=== PATIENT | female | born 1935 ===

== ENCOUNTER → 2024-04-29 09:19 | Outpatient (CLI) | payer MEDICARE, MEDICAID, SELFPAY ==
[2024-04-29 11:30] LABS: Hematocrit 48.5 % (36-46); Hemoglobin 16.4 g/dL (12.0-16.0); Mean Corpuscular HGB Conc 33.9 % (30-36); Mean Corpuscular Hemoglobin 29.6 PG (26-34); Mean Corpuscular Volume 87.3 fL (80-100); Platelet Count 260 X10^3/uL (150-400); Red Blood Cell Count 5.55 X10^6/uL (4.0-5.2); Red Cell Distribution Width 14.8 % (11.6-14.8); White Blood Cell Count 8.7 X10^3/uL (4.5-11.0)
[2024-04-29 11:36] LABS: Hemoglobin A1C% w Est Avg Glu 6.4 % (4.0-6.0)
[2024-04-29 11:45] LABS: BUN Creatinine Ratio 28.1 (6-22); Blood Urea Nitrogen 32 mg/dL (7-17); Carbon Dioxide 22 mmol/L (22-32); Chloride 101 mmol/L (98-107); Cholesterol 217 mg/dL (140-199); Estimated Glomerular Filt Rate 47 mL/min (>60); Glucose 141 mg/dL (80-110); HDL Cholesterol 32 mg/dL (40-60); HEMOLYSIS 23 (0-50); LDL Cholesterol Calculated 138 mg/dL (<100); Potassium 4.3 mmol/L (3.4-5.1); Sodium 136 mmol/L (137-145); Triglycerides 237 mg/dL (35-150)
== END ==
LOC: LAB 09:22
PROVIDERS: PCP Nurse Practitioner Family; Referring Provider Nurse Practitioner Family; Visit Provider Nurse Practitioner Family
DX: E11.9 Type 2 diabetes mellitus without complications (principal); I50.9 Heart failure, unspecified
CPT/HCPCS: 36415; 80048; 80061; 83036; 85027

== ENCOUNTER → 2024-05-28 10:55 | Outpatient (CLI) | payer MEDICARE, MEDICAID, SELFPAY ==
--- NOTE | 2024-05-28 11:07 | DIAB.MNT ---
Initial Diabetes Medical Nutrition Therapy Assessment Name: Rona Cotter Date: 05/28/24 Time: [id number] Dx: Type II Diabetes Rona presents with caregiver today for initial Dm visit. States she has had Dm for a long time, 20-40 years. Wanting to know what is new in DM. Follows Mediterranean diet with lower carb per report. Wears Dexcom G7. Noticed stress can increase BG. Less stress lately. Has not needed insulin, though in today's visit had a BG of 255mg/dl after hot chocolate on the way here. States she will take Tresiba if above 200mg/dl, but does not have insulin needle tips with her today. Last PCP per report rec'd not to take Tresiba unless BG is over 200mg/dl. Try to keep BG 120-200. Labs also indicate some renal insufficiencies with GFR at 47 and Cr 1.14. States she sometimes will forget to drink much water when at the computer most of the day. Diet Recall: 9a: cheerios with fruit and milk OR egg with mushrooms and 1 polish toast snack: nothing or fruit 1p: half can of soup + fruit OR PB sandwich 6-7p: half can of soup +/- extra chicken OR pork chop with veggies and 1/2c rice OR pasta with chx x 1c Water 26oz+ flavored water 20oz diet pepsi 24oz Anthropometrics: Ht: 68 Wt: 154# 05/07/24 Weight history: States she has lost 10# over about 2 months intentionally. Has had recent fall per report. States she checks her wt daily. Some concern from this RD about wt loss desire, usual associated muscle loss, and falls. Physical Activity: Just started PT Self-Monitoring Blood Glucose: Per CGM, seems to have elevations most frequently at noon, after breakfast. Most days 1-2 elevations in the 200s. TIR Today: 4% very high 14% high 81% in range 1% low <1% very low avmg/dl 43mg/dl std dev GMI: 6.8% Diabetes Medications: 10mg Jardiance Tresiba-- not taking currently Pertinent Labs: HgA1c: 6.4% 04/2024 Cr: 1.14H GFR: 47 L Past Medical History: (Last Updated 05/12/24 @ 10:28 by Poonam Ferrell [facility]) Atrial fibrillation Balance problem Congestive heart failure Diabetes mellitus Fibromyalgia Hard of hearing Hyperlipidemia Hypertension Intermittent asthma Migraines Nutrition Rx: REE: 1200 Carbohydrates: Daily: 130g Meal:30g Snack:15-30g Protein: Daily: 60-70g Nutrition Diagnosis: - Excessive CHO intake r/t breakfast and drink choices aeb diet recall and CGM reports - Predicted inadequate fluid intake r/t some days forgetting water aeb pt report Intervention: This participant was very receptive. Provided appropriate educational handouts. Discussed the following topics: Completed intake assessment. Discussed barriers to care. CGM reports and trends Plate Method, impact of macronutrients on blood sugar, meal timing, carbohydrate counting, pairing macronutrients and spreading out carbohydrates for better blood glucose management Plant based proteins for kidney health Protein recommendations balancing DM and kidney health and strength to reduce falls Recommended servings for carbohydrates at meals and snacks Brainstormed appropriate breakfast ideas Role of physical activity and following provider guidelines for safety Importance of hydration especially on Jaridiance Created SMART goals for patient self-care and success. Goals: Keep insulin needles in purse Check Finnish miss hot chocolate at home if sf Add a small portion protein at breakfast Be mindful of water intake Follow-up: CHRISTIANA ASHRAF follow-up in 3-4 weeks Fabiola Hoyt RDN, ANDRIY Certified Diabetes Care and [employer] Super[employer] P: [phone] Thank you for this referral
== END ==
PROVIDERS: PCP Nurse Practitioner Family; Referring Provider Nurse Practitioner Family
DX: E11.9 Type 2 diabetes mellitus without complications (principal); Z79.84 Long term (current) use of oral hypoglycemic drugs; Z71.3 Dietary counseling and surveillance
CPT/HCPCS: 97802

== ENCOUNTER → 2024-06-19 12:22 | Outpatient (CLI) | payer MEDICARE, MEDICAID, SELFPAY ==
[2024-06-19 15:00] LABS: Add Manual Diff / Slide Review NO; Basophils Absolute Auto 100 /uL (0-100); Basophils Percent Auto 0.8 % (0-2); Eosinophils Absolute Auto 100 /uL (0-450); Eosinophils Percent Auto 1.2 % (2-4); Hematocrit 47.1 % (36-46); Hemoglobin 16.1 g/dL (12.0-16.0); Lymphocytes Absolute Auto 3100 /uL (1100-4500); Lymphocytes Percent Auto 31.6 % (25-40); Mean Corpuscular HGB Conc 34.2 % (30-36); Mean Corpuscular Hemoglobin 29.9 PG (26-34); Mean Corpuscular Volume 87.4 fL (80-100); Monocytes Absolute Auto 700 /uL (0-900); Monocytes Percent Auto 7.3 % (3-14); Neutrophils Absolute Auto 5800 /uL (1500-7000); Neutrophils Percent Auto 59.1 % (50-75); Platelet Count 275 X10^3/uL (150-400); Red Blood Cell Count 5.38 X10^6/uL (4.0-5.2); Red Cell Distribution Width 14.8 % (11.6-14.8); White Blood Cell Count 9.8 X10^3/uL (4.5-11.0)
[2024-06-19 15:20] LABS: BUN Creatinine Ratio 28.6 (6-22); Blood Urea Nitrogen 30 mg/dL (7-17); Calcium 9.7 mg/dL (8.4-10.2); Carbon Dioxide 22 mmol/L (22-32); Chloride 101 mmol/L (98-107); Estimated Glomerular Filt Rate 52 mL/min (>60); Glucose 124 mg/dL (80-110); HEMOLYSIS < 15 (0-50); Potassium 3.3 mmol/L (3.4-5.1); Sodium 135 mmol/L (137-145)
[2024-06-19 15:31] LABS: Hemoglobin A1C% w Est Avg Glu 6.6 % (4.0-6.0)
== END ==
PROVIDERS: PCP Nurse Practitioner Family; Referring Provider Nurse Practitioner Family; Visit Provider Nurse Practitioner Family
DX: E11.9 Type 2 diabetes mellitus without complications (principal); I48.91 Unspecified atrial fibrillation; I50.9 Heart failure, unspecified; I10 Essential (primary) hypertension
CPT/HCPCS: 80048; 83036; 85025

== ENCOUNTER 2024-08-13 15:31 | Emergency (ER) | payer MEDICARE, MEDICAID, SELFPAY ==
[2024-08-13] VITALS (8 sets, daily range): BP systolic 123–154; BP diastolic 61–85; PULSE 71–81; RESP 14–19; TEMP 36.5–36.8; O2SAT 95–99; BMI 25.3
--- NOTE | 2024-08-13 15:37 | EKG_ITS ---
[address] [address] Test Date: 2024-08-13 Pat Name: Rona Cotter Department: Room: Gender: Female Tier Over: MARTI : 1935 Requested By: Order Number: [id number] Reading MD: Sukhi Alba Measurements Intervals [place] Rate: 78 P: 83 [place]: 166 QRS: 61 QRSD: 94 T: 72 QT: 390 QTc: 444 Interpretive Statements Sinus rhythm with premature atrial complexes Electronically Signed On 08-14-2024 7:22:41 PST by Sukhi Alba
--- NOTE | 2024-08-13 15:39 | DI.RAD.S_ITS ---
PROCEDURE: XR CHEST 1V INDICATIONS: chest pain TECHNIQUE: One view of the chest was acquired. COMPARISON: None. FINDINGS: Surgical changes and devices: None. Lungs and pleura: Lungs are clear. No pleural effusions or pneumothorax. Mediastinum: Mediastinal contours appear normal. Heart size is normal. Bones and chest wall: No suspicious bony lesions. Overlying soft tissues appear unremarkable. S shaped scoliosis. IMPRESSION: No acute cardiopulmonary abnormality is seen. Dictated by: Sai Hummel M.D. on 08/13/2024 at 16:07 Approved by: Sai Hummel M.D. on 08/13/2024 at 16:08
[2024-08-13 15:58] LABS: Add Manual Diff / Slide Review NO; Basophils Absolute Auto 100 /uL (0-100); Basophils Percent Auto 1.5 % (0-2); Eosinophils Absolute Auto 800 /uL (0-450); Eosinophils Percent Auto 8.2 % (2-4); Hematocrit 47.6 % (36-46); Hemoglobin 16.2 g/dL (12.0-16.0); Lymphocytes Absolute Auto 3800 /uL (1100-4500); Lymphocytes Percent Auto 41.1 % (25-40); Mean Corpuscular HGB Conc 34.1 % (30-36); Mean Corpuscular Hemoglobin 30.2 PG (26-34); Mean Corpuscular Volume 88.8 fL (80-100); Monocytes Absolute Auto 900 /uL (0-900); Monocytes Percent Auto 9.6 % (3-14); Neutrophils Absolute Auto 3700 /uL (1500-7000); Neutrophils Percent Auto 39.6 % (50-75); Platelet Count 308 X10^3/uL (150-400); Red Blood Cell Count 5.36 X10^6/uL (4.0-5.2); Red Cell Distribution Width 14.4 % (11.6-14.8); White Blood Cell Count 9.4 X10^3/uL (4.5-11.0)
[2024-08-13 15:59] LABS: INR 1.1 (0.9-1.3); Prothrombin Time 12.5 SECONDS (9.4-12.5)
[2024-08-13 16:02] LABS: PTT Partial Thromboplastin Tim 41 SECONDS (25.1-36.5)
[2024-08-13 16:04] LABS: Alanine Aminotransferase 28 IU/L (<35); Albumin 4.9 g/dL (3.5-5.0); Albumin Globulin Ratio 1.4 (1.0-2.8); Alkaline Phosphatase 89 U/L (38-126); Aspartate Aminotransferase 44 IU/L (14-36); BUN Creatinine Ratio 38.8 (6-22); Bilirubin Total 0.6 mg/dL (0.2-1.3); Blood Urea Nitrogen 33 mg/dL (7-17); Calcium 9.3 mg/dL (8.4-10.2); Carbon Dioxide 24 mmol/L (22-32); Chloride 100 mmol/L (98-107); Creatine Kinase 92 U/L (30-135); Estimated Glomerular Filt Rate > 60 mL/min (>60); Globulin 3.4 g/dL (1.7-4.1); Glucose 214 mg/dL (80-110); Lipase 118 U/L (23-300); Potassium 3.6 mmol/L (3.4-5.1); Sodium 135 mmol/L (137-145); Total Protein 8.3 g/dL (6.3-8.2)
[2024-08-13 16:07] LABS: HEMOLYSIS 56 (0-50)
[2024-08-13 16:15] LABS: NT-proBNP (BNP-Adult 18+) 62 pg/mL (<450); Troponin I < 0.012 ng/mL (0.01-0.034)
--- NOTE | 2024-08-13 17:21 | ED_ITS ---
HPI - Chest Pain General Chief Complaint: Chest Pain Stated Complaint: chest pain Time Seen by Provider: 08/13/24 15:35 Source: patient Mode of arrival: Wheelchair Limitations: no limitations History of Present Illness HPI narrative: 89-year-old woman with a history of atrial fibrillation, anticoagulated on apixaban, diabetes, hypertension, asthma, migraines, congestive heart failure presents after a fleeting episode of severe sharp left-sided chest pain that occurred 3 days ago while at rest. She has had occasional upper left chest pain and occasional discomfort radiating down her left arm. In the past she is always attributed this to her ?congestive heart failure pain?. She does have some cervical spine pain with radicular symptoms. She mentioned her symptoms 72 hours ago to a friend who was concerned and brought her to the ER for additional evaluation. She is currently pain-free, not experiencing palpitations no change to lower extremity edema, no orthopnea no exertional dyspnea and no recent fevers or chills to suggest an upper respiratory infection Related Data Previous Rx's Medication Instructions Recorded insulin degludec 200 unit/mL (3 44 unit (0.22 mL) SUBCUT DAILY #9 04/02/24 mL) subcutaneous pen (Tresiba mL FlexTouch U-200 insulin) apixaban 5 mg tablet (Eliquis) 5 mg PO ONCE #90 tabs 04/08/24 empagliflozin 10 mg tablet 10 mg PO DAILY #90 tabs 04/08/24 (Jardiance) metoprolol succinate 25 mg 25 mg PO BID #90 tabs 04/08/24 tablet,extended release 24 hr albuterol sulfate 90 mcg/actuation 1 inh inhalation Q4-6H PRN 05/07/24 aerosol inhaler shortness of breath or wheezing #8.5 grams Disabled Parking Permit #1 ea 05/13/24 bumetanide 2 mg tablet 2 mg PO DAILY #90 tabs 07/30/24 potassium chloride 20 mEq 40 meq (2 x 20 mEq) PO DAILY #180 07/30/24 tablet,extended tabs release(part/cryst) (Klor-Con M) blood-glucose sensor (Dexcom G7 #3 ea 08/05/24 Sensor device) Allergies Allergy/AdvReac Type Severity Reaction Status Date / Time No Known Drug Allergies Allergy Verified 08/13/24 15:40 Review of Systems Review of Systems Narrative: Pertinent positive and negative findings as per HPI Patient History Medical History Hyperlipidemia Balance problem Hard of hearing Intermittent asthma Migraines Fibromyalgia Atrial fibrillation Diabetes mellitus Congestive heart failure Hypertension Social History Smoking Status: Never smoker Smoking Status: Never smoker alcohol intake frequency: holidays/special occasions only Substance Use Type: does not use Exam Initial Vital Signs Initial Vital Signs: Vital Signs Temperature 97.7 F 08/13/24 15:32 Pulse Rate 76 08/13/24 15:32 Respiratory Rate 14 08/13/24 15:32 Blood Pressure 147/85 H 08/13/24 15:32 Pulse Oximetry 99 08/13/24 15:32 Oxygen Delivery Method Room Air 08/13/24 15:32 General: Healthy appearing, in no acute distress. Able to give a complete and coherent history. Well-nourished well-developed HEENT: Moist mucous membranes, normal sclera with reactive pupils, Neck: Muscle tenderness along the left side of the cervical spine. A spasm into the left trapezius muscle palpation around that area does reproduce some of the arm pain and upper chest pain patient had noted Respiratory: Lungs are clear to auscultation, no wheezing no rales no rhonchi. Full and symmetrical air movement Cardiac: Regular rate and rhythm no murmurs no bruits Abdomen: Soft, nontender, good bowel tones, no flank pain Skin: Warm and dry, no rashes Neurologic: Grossly neurologically intact with no obvious asymmetries or abnormalities Extremities: No trauma, 1+ bilateral edema with chronic venous stasis changes Psych: Cooperative, appropriate insight and affect Course Orders Ordered: Discontinued Medications Aspirin (Aspirin 81 Mg Chew Tab) 324 mg PO NOW ONE Stop: 08/13/24 15:40 Last Admin: 08/13/24 17:46 Dose: Not Given Documented By: MPO Vital Signs Vital signs: Vital Signs - 8 hr 08/13/24 15:32 08/13/24 15:35 08/13/24 15:38 Temperature 97.7 F Pulse Rate 76 81 Respiratory Rate 14 Blood Pressure 147/85 H 147/85 H Pulse Oximetry 99 96 Oxygen Delivery Method Room Air 08/13/24 15:38 08/13/24 16:00 08/13/24 16:00 Temperature Pulse Rate 77 74 Respiratory Rate Blood Pressure 131/66 Pulse Oximetry 98 96 Oxygen Delivery Method 08/13/24 16:30 08/13/24 16:30 Temperature Pulse Rate 72 Respiratory Rate Blood Pressure 123/62 Pulse Oximetry 95 Oxygen Delivery Method MDM - Chest Pain Lab Data 08/13/24 15:44 08/13/24 15:44 Labs: Lab Results 08/13/24 Range/Units 15:44 WBC 9.4 (4.5-11.0) X10^3/uL RBC 5.36 H (4.0-5.2) X10^6/uL Hgb 16.2 H (12.0-16.0) g/dL Hct 47.6 H (36-46) % MCV 88.8 (80-100) fL MCH 30.2 (26-34) PG MCHC 34.1 (30-36) % RDW 14.4 (11.6-14.8) % Plt Count 308 (150-400) X10^3/uL Neut % (Auto) 39.6 L (50-75) % Lymph % (Auto) 41.1 H (25-40) % [place] % (Auto) 9.6 (3-14) % Eos % (Auto) 8.2 H (2-4) % Baso % (Auto) 1.5 (0-2) % Neut # (Auto) 3700 (7350-8436) /uL Lymph # (Auto) 3800 (5024-0117) /uL [place] # (Auto) 900 (0-900) /uL Eos # (Auto) 800 H (0-450) /uL Baso # (Auto) 100 (0-100) /uL PT 12.5 (9.4-12.5) SECONDS INR 1.1 (0.9-1.3) APTT 41 H (25.1-36.5) SECONDS Sodium 135 L (137-145) mmol/L Potassium 3.6 (3.4-5.1) mmol/L Chloride 100 (98-107) mmol/L Carbon Dioxide 24 (22-32) mmol/L BUN 33 H (7-17) mg/dL Creatinine 0.85 (0.52-1.04) mg/dL Estimated GFR > 60 (>60) mL/min BUN/Creatinine Ratio 38.8 H (6-22) Glucose 214 H (80-110) mg/dL Calcium 9.3 (8.4-10.2) mg/dL Magnesium 2.0 (1.6-2.3) mg/dL Total Bilirubin 0.6 (0.2-1.3) mg/dL AST 44 H (14-36) IU/L ALT 28 (<35) IU/L Alkaline Phosphatase 89 (38-126) U/L Total Creatine Kinase 92 (30-135) U/L Troponin I < 0.012 (0.01-0.034) ng/mL NT-Pro-B Natriuret Pep 62 (<450) pg/mL Total Protein 8.3 H (6.3-8.2) g/dL Albumin 4.9 (3.5-5.0) g/dL Globulin 3.4 (1.7-4.1) g/dL Albumin/Globulin Ratio 1.4 (1.0-2.8) Lipase 118 (23-300) U/L MDM Narrative Medical decision making narrative: CC: chest pain Complicating co-morbidities: anticoagulated atrial fibrillation, hypertension, asthma, diabetes Data collected from: patient Social determinants of health that may influence the patients condition: Medical records reviewed: primary care note from July 30 with routine follow up Differential considered: Acute coronary syndrome, pericarditis, myocarditis, pleural effusion, pneumothorax, radicular neck pain, other musculoskeletal pain Exam documented above, pertinent findings include: No signs of congestive heart failure, some cervical radicular pain reproducible causing pain into the arm and upper chest Lab Test results independently reviewed as above. Pertinent findings: CBC is unremarkable, stable elevated H&H 16.2 and 47.6 chemistries are reassuring. Initial troponin is undetectable proBNP is not elevated Independently reviewed EKG: sinus rhythm, occasional PAC. Rate of 78. No acute ischemic changes Imaging studies independently reviewed: chest x-ray shows no acute abnormalities Discussion: 89-year-old woman with fleeting episode of severe stabbing left- sided chest pain more than 3 days ago. Continuing to have some upper chest and left arm discomfort and comes in for evaluation. Cardiac workup is quite reassuring with no suggestion of acute coronary disease as a cause for pain. There was no evidence of congestive heart failure, collapsed lung, infection or alternate significant medical explanation for her pain. I suspect the fleeting episode of pain was musculoskeletal and the persistent pain that she is having in the upper chest and down her arm is radicular from her chronic neck issues. Findings reviewed with the patient, questions are answered and she is safe for discharge Discharge Plan Departure Patient Disposition: Home Clinical Impression: Chest pain Qualifiers: Chest pain type: other chest pain Qualified Code(s): R07.89 - Other chest pain Instructions: DI for Atypical Chest Pain Activity Restrictions/Additional Instructions: thank you for coming in today your workup was very reassuring. With that fleeting episode of pain 3 days ago and the continued tightness, if it were related to your heart I would see changes in your blood work. Your blood work is actually quite reassuring. Your EKG does not suggest an acute heart attack. Your chest x-ray is reassuring and I am not seeing signs of significant fluid overload to suggest significant heart failure. You are obviously taking the right medications and doing the right exercise routine at home frequently, with fleeting episodes of pain like you experienced, it is related to muscles in your chest wall. A pinched nerve in your neck can also cause similar findings. Unfortunately, women have different presentations with heart attacks and checking out your symptoms today was appropriate please continue all of your medications, activities and physician follow-up appointments as scheduled If you find that you are getting worse or develop any new symptoms, please feel free to return to the emergency department for further evaluation. Prescriptions: No Action metoprolol succinate 25 mg tablet extended release 24 hr 25 mg PO BID Qty: 90 3RF Eliquis 5 mg tablet 5 mg PO ONCE Qty: 90 3RF Jardiance 10 mg tablet 10 mg PO DAILY Qty: 90 3RF (DME) Disabled Parking Permit See Rx Instructions .ROUTE .MEDSUPPLY Qty: 1 0RF Rx Instructions: I find this patient to be medically disabled and qualified for Disabled Parking as indicated on the accompanying Disabled Parking Application for Individuals. (DME) DexPhotometics G7 Sensor Device See Rx Instructions .Route Qty: 3 3RF Rx Instructions: As directed insulin degludec [Tresiba FlexTouch U-200] 200 unit/mL (3 mL) insulin pen 44 unit SUBCUT DAILY Qty: 9 3RF Rx Instructions: Take in AM albuterol sulfate 90 mcg/actuation HFA aerosol inhaler 1 inh inhalation Q4-6H PRN (Reason: shortness of breath or wheezing) Qty: 8.5 0RF bumetanide 2 mg tablet 2 mg PO DAILY Qty: 90 0RF Rx Instructions: Every other day potassium chloride [Klor-Con M20] 20 mEq tablet,ER particles/crystals 40 meq PO DAILY Qty: 180 1RF Referrals: Poonam Ferrell, DAMIAN-BC [Primary Care Provider] - Stand Alone Forms: Patient Portal/API/Survey
== END 2024-08-13 17:55 | disposition home or self-care (01) ==
PROVIDERS: Emergency Provider Emergency Medicine; PCP Nurse Practitioner Family
DX: R07.89 Other chest pain (principal); I50.9 Heart failure, unspecified; Z79.01 Long term (current) use of anticoagulants
CPT/HCPCS: 36415; 71045; 80053; 82550; 83690; 83735; 83880; 84484; 85025; 85610; 85730; 93005; 99283; 99284

== ENCOUNTER → 2025-01-01 11:30 | Outpatient (CLI) | payer MEDICARE, MEDICAID, SELFPAY ==
[2025-01-01 12:51] LABS: Add Manual Diff / Slide Review NO; Basophils Absolute Auto 100 /uL (0-100); Basophils Percent Auto 1.2 % (0-2); Eosinophils Absolute Auto 300 /uL (0-450); Eosinophils Percent Auto 4.2 % (2-4); Hematocrit 45.7 % (36-46); Hemoglobin 15.6 g/dL (12.0-16.0); Lymphocytes Absolute Auto 3200 /uL (1100-4500); Lymphocytes Percent Auto 42.4 % (25-40); Mean Corpuscular HGB Conc 34.1 % (30-36); Mean Corpuscular Hemoglobin 29.7 PG (26-34); Mean Corpuscular Volume 87.2 fL (80-100); Monocytes Absolute Auto 700 /uL (0-900); Monocytes Percent Auto 9.1 % (3-14); Neutrophils Absolute Auto 3300 /uL (1500-7000); Neutrophils Percent Auto 43.1 % (50-75); Platelet Count 257 X10^3/uL (150-400); Red Blood Cell Count 5.24 X10^6/uL (4.0-5.2); Red Cell Distribution Width 14.5 % (11.6-14.8); White Blood Cell Count 7.6 X10^3/uL (4.5-11.0)
[2025-01-01 12:58] LABS: Hemoglobin A1C% w Est Avg Glu 6.7 % (4.0-6.0)
[2025-01-01 13:15] LABS: BUN Creatinine Ratio 39.4 (6-22); Blood Urea Nitrogen 37 mg/dL (7-17); Calcium 9.9 mg/dL (8.4-10.2); Carbon Dioxide 26 mmol/L (22-32); Chloride 102 mmol/L (98-107); Estimated Glomerular Filt Rate 59 mL/min (>60); Glucose 215 mg/dL (80-110); HEMOLYSIS < 15 (0-50); Magnesium 2.2 mg/dL (1.6-2.3); Potassium 4.4 mmol/L (3.4-5.1); Sodium 138 mmol/L (137-145)
[2025-01-01 13:42] LABS: TSH w/ Reflex to FT4 0.68 uIU/mL (0.47-4.68)
== END ==
PROVIDERS: PCP Nurse Practitioner Family; Referring Provider Nurse Practitioner Family; Visit Provider Nurse Practitioner Family
DX: I11.0 Hypertensive heart disease with heart failure (principal); I50.9 Heart failure, unspecified; E11.9 Type 2 diabetes mellitus without complications; E78.5 Hyperlipidemia, unspecified; E03.9 Hypothyroidism, unspecified; R94.6 Abnormal results of thyroid function studies; R26.89 Other abnormalities of gait and mobility
CPT/HCPCS: 36415; 80048; 83036; 83735; 84443; 85025

== ENCOUNTER → 2025-02-23 10:58 | Outpatient (CLI) | payer MEDICARE, MEDICAID, SELFPAY ==
--- NOTE | 2025-02-23 11:00 | DI.RAD.S_ITS ---
PROCEDURE: XR CHEST 2V INDICATIONS: ADKINS TECHNIQUE: 2 views of the chest were acquired. COMPARISON: [facility], CR, XR CHEST 1V, 08/13/2024, 15:37. FINDINGS: Heart, mediastinum and pulmonary vascular: Heart is normal in size and configuration. Mediastinum is unremarkable. Pulmonary vascular is normal. Lungs: Lung volumes are elevated there is wall thickening of the bronchi suggesting bronchitis Pleural spaces: Normal-no effusions or pneumothorax. 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 IMPRESSION: Bronchitis Dictated by: Alon Petersen M.D. on 02/24/2025 at 12:28 Approved by: Alon Petersen M.D. on 02/24/2025 at 12:29
[2025-02-23 12:02] LABS: Add Manual Diff / Slide Review NO; Basophils Absolute Auto 100 /uL (0-100); Basophils Percent Auto 0.9 % (0-2); Eosinophils Absolute Auto 300 /uL (0-450); Eosinophils Percent Auto 2.8 % (2-4); Hematocrit 47.1 % (36-46); Lymphocytes Absolute Auto 2900 /uL (1100-4500); Lymphocytes Percent Auto 31.4 % (25-40); Mean Corpuscular HGB Conc 33.9 % (30-36); Mean Corpuscular Hemoglobin 29.9 PG (26-34); Monocytes Absolute Auto 700 /uL (0-900); Monocytes Percent Auto 7.7 % (3-14); Neutrophils Absolute Auto 5300 /uL (1500-7000); Neutrophils Percent Auto 57.2 % (50-75); Platelet Count 263 X10^3/uL (150-400); Red Blood Cell Count 5.35 X10^6/uL (4.0-5.2); Red Cell Distribution Width 14.7 % (11.6-14.8); White Blood Cell Count 9.3 X10^3/uL (4.5-11.0)
[2025-02-23 12:18] LABS: Alanine Aminotransferase 19 IU/L (<35); Albumin 4.5 g/dL (3.5-5.0); Albumin Globulin Ratio 1.6 (1.0-2.8); Alkaline Phosphatase 105 U/L (38-126); Aspartate Aminotransferase 27 IU/L (14-36); BUN Creatinine Ratio 35.3 (6-22); Bilirubin Total 0.7 mg/dL (0.2-1.3); Blood Urea Nitrogen 30 mg/dL (7-17); Calcium 9.7 mg/dL (8.4-10.2); Carbon Dioxide 26 mmol/L (22-32); Chloride 101 mmol/L (98-107); Estimated Glomerular Filt Rate > 60 mL/min (>60); Globulin 2.8 g/dL (1.7-4.1); Glucose 213 mg/dL (70-99); HEMOLYSIS < 15 (0-50); Potassium 4.1 mmol/L (3.4-5.1); Sodium 137 mmol/L (137-145); Total Protein 7.3 g/dL (6.3-8.2)
[2025-02-23 12:28] LABS: NT-proBNP (BNP-Adult 18+) 67 pg/mL (<450)
== END ==
LOC: RAD 11:00
PROVIDERS: PCP Nurse Practitioner Family; Referring Provider Internal Medicine; Visit Provider Internal Medicine
DX: J40 Bronchitis, not specified as acute or chronic (principal); R06.09 Other forms of dyspnea; I11.0 Hypertensive heart disease with heart failure; I50.9 Heart failure, unspecified; M51.34 Other intervertebral disc degeneration, thoracic region
CPT/HCPCS: 36415; 71046; 80053; 83880; 85025

== ENCOUNTER 2025-04-19 10:33 | Emergency (ER) | payer MEDICARE, MEDICAID, SELFPAY ==
--- NOTE | 2025-04-19 10:39 | DI.RAD.S_ITS ---
PROCEDURE: XR CHEST 1V INDICATIONS: Chest Pain TECHNIQUE: One view of the chest was acquired. COMPARISON: [facility], CR, XR CHEST 2V, 02/23/2025, 11:03. FINDINGS: Surgical changes and devices: None. Lungs and pleura: Lungs are clear. No pleural effusions or pneumothorax. Mediastinum: Mediastinal contours appear normal. Heart size is normal. Bones and chest wall: No suspicious bony lesions. Overlying soft tissues appear unremarkable. IMPRESSION: No acute cardiopulmonary pathology. Dictated by: Julio Valentine M.D. on 04/19/2025 at 11:45 Approved by: Julio Valentine M.D. on 04/19/2025 at 11:45
[2025-04-19 10:40] VITALS: BP 138/74; PULSE 83; RESP 18; TEMP 36.8; O2SAT 100; BMI 27.4
--- NOTE | 2025-04-19 10:43 | EKG_ITS ---
[address] [address] Test Date: 2025-04-19 Pat Name: Rona Cotter Department: Room: Gender: Female Home Health Travel Pt: FAROOQ : 1935 Requested By: Order Number: [id number] Reading MD: Sukhi Alba Measurements Intervals [place] Rate: 83 P: 73 MT: 162 QRS: 80 QRSD: 90 T: 85 QT: 394 QTc: 462 Interpretive Statements Sinus rhythm with premature supraventricular complexes Electronically Signed On 04-30-2025 8:47:20 PDT by Sukhi Alba
[2025-04-19 11:23] LABS: Add Manual Diff / Slide Review NO; Hematocrit 48.1 % (36-46); Hemoglobin 16.5 g/dL (12.0-16.0); Lymphocytes Absolute Auto 3500 /uL (1100-4500); Mean Corpuscular HGB Conc 34.3 % (30-36); Mean Corpuscular Hemoglobin 30.1 PG (26-34); Mean Corpuscular Volume 87.8 fL (80-100); Platelet Count 267 X10^3/uL (150-400)
[2025-04-19 11:28] LABS: INR 1.1 (0.9-1.3); Prothrombin Time 12.3 SECONDS (9.4-12.5)
[2025-04-19 11:31] LABS: PTT Partial Thromboplastin Tim 32 SECONDS (25.1-36.5)
[2025-04-19 11:32] LABS: Alanine Aminotransferase 25 IU/L (<35); Albumin 4.7 g/dL (3.5-5.0); Albumin Globulin Ratio 1.2 (1.0-2.8); Alkaline Phosphatase 73 U/L (38-126); Blood Urea Nitrogen 30 mg/dL (7-17); Calcium 9.7 mg/dL (8.4-10.2); Carbon Dioxide 23 mmol/L (22-32); Chloride 101 mmol/L (98-107); Creatine Kinase 197 U/L (30-135); Estimated Glomerular Filt Rate > 60 mL/min (>60); Globulin 3.8 g/dL (1.7-4.1); Glucose 151 mg/dL (70-99); Lipase 138 U/L (23-300); Magnesium 2.1 mg/dL (1.6-2.3); Sodium 135 mmol/L (137-145); Total Protein 8.5 g/dL (6.3-8.2)
[2025-04-19 11:33] LABS: HEMOLYSIS 119 (0-50)
[2025-04-19 11:34] LABS: Potassium 3.8 mmol/L (3.4-5.1)
[2025-04-19 11:45] LABS: NT-proBNP (BNP-Adult 18+) 142 pg/mL (<450); Troponin I < 0.012 ng/mL (0.01-0.034)
--- NOTE | 2025-04-19 12:31 | ED.CHESTPAIN ---
HPI - Chest Pain General Chief Complaint: Chest Pain Stated Complaint: chest pain Time Seen by Provider: 04/19/25 11:27 Source: patient Mode of arrival: Wheelchair Limitations: physical limitation History of Present Illness HPI narrative: 89-year-old woman with a history of atrial fibrillation, anticoagulated on apixaban, diabetes, hypertension, asthma, migraines, congestive heart failure who has chronic chest pain off and on. Patient now has dull achy pain on the left side of her chest that radiates a little bit to her left arm. Upon evaluation, it has dissipated little bit but has still been there for several hours now. Usually the pain does not go on for this long. 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 #1 ea 01/07/25 (Dexcom G7 Hospice Coordinator) bumetanide 2 mg tablet 2 mg PO DAILY #90 tabs 01/07/25 empagliflozin 10 mg tablet 10 mg PO DAILY #90 tabs 01/07/25 (Jardiance) insulin degludec 200 unit/mL (3 15 unit (0.075 mL) SUBCUT DAILY #9 01/07/25 mL) subcutaneous pen (Tresiba mL FlexTouch U-200 insulin) metoprolol succinate 25 mg 25 mg PO BID #90 tabs 01/07/25 tablet,extended release 24 hr potassium chloride 20 mEq 40 meq (2 x 20 mEq) PO DAILY #180 01/07/25 tablet,extended tabs release(part/cryst) (Klor-Con M) Allergies Allergy/AdvReac Type Severity Reaction Status Date / Time No Known Drug Allergies Allergy Verified 02/23/25 10:29 Patient History Medical History Pedal edema Hyperlipidemia Balance problem Hard of hearing Intermittent asthma Migraines Fibromyalgia Atrial fibrillation Diabetes mellitus Congestive heart failure Hypertension Social History Smoking Status: Never smoker Smoking Status: Never smoker alcohol intake frequency: holidays/special occasions only Exam Narrative Exam Narrative: General: Patient appears to be in no acute distress, acting appropriately Head: normocephalic, atraumatic, HEENT: Pupils equal round reactive, eyes tracking well, neck supple, no JVD Heart: regular rate and rhythm, no murmurs, rubs, or gallops heard Lungs: clear to auscultation, no adventitious sounds Abdomen: soft , nontender, nondistended, positive bowel sounds Neurological: no focal neurological signs, moving all extremities well, alert and oriented x3, Psych: good judgment ,good insight, mood is normal. Initial Vital Signs Initial Vital Signs: Vital Signs Temperature 98.2 F 04/19/25 10:40 Pulse Rate 83 04/19/25 10:40 Respiratory Rate 18 04/19/25 10:40 Blood Pressure 138/74 04/19/25 10:40 Pulse Oximetry 100 04/19/25 10:40 Oxygen Delivery Method Room Air 04/19/25 10:40 Course Course Course Narrative: We will do a cardiac workup. So far labs unremarkable. Troponin negative. EKG shows a sinus rhythm with premature supraventricular complexes. Orders Ordered: ED Orders 04/19/25 10:39 XR chest 1V Stat EKG-12 Lead Stat 04/19/25 11:05 Complete Blood Count AUTO DIFF Stat Comprehensive Metabolic Panel Stat Lipase Stat Magnesium Stat NT-proBNP (BNP-Adult 18+) Stat PTT Partial Thromboplastin [place] Stat Prothrombin Time INR Stat Troponin & CK Cardiac Panel Stat 04/19/25 13:53 EKG-12 Lead Stat 04/19/25 14:06 Trop I [Troponin I] Stat Discontinued Medications Aspirin (Aspirin 81 Mg Chew Tab) 324 mg PO NOW ONE Stop: 04/19/25 10:40 Last Admin: 04/19/25 13:26 Dose: Not Given Documented By: DALY Nitroglycerin (Nitroglycerin 0.4 Mg Sl Tab) 0.4 mg SL NOW ONE Stop: 04/19/25 12:47 Last Admin: 04/19/25 13:26 Dose: 0.4 mg Documented By: DALY Reevaluation(s) Reevaluation #1: Upon re-evaluation, pain is down to a 2/10. Nitroglycerin tablet did help the patient. Vital Signs Vital signs: Vital Signs - 8 hr 04/19/25 10:40 04/19/25 13:26 04/19/25 13:32 Temperature 98.2 F Pulse Rate 83 81 97 H Respiratory Rate 18 18 Blood Pressure 138/74 162/83 H 91/55 L Pulse Oximetry 100 98 Oxygen Delivery Method Room Air Room Air MDM - Chest Pain Differential Diagnosis Differential diagnosis: Likely stable angina, unstable angina pectoris and atypical chest pain Lab Data 04/19/25 11:05 04/19/25 11:05 Labs: Lab Results 04/19/25 04/19/25 Range/Units 11:05 14:06 WBC 9.8 (4.5-11.0) X10^3/uL RBC 5.48 H (4.0-5.2) X10^6/uL Hgb 16.5 H (12.0-16.0) g/dL Hct 48.1 H (36-46) % MCV 87.8 (80-100) fL MCH 30.1 (26-34) PG MCHC 34.3 (30-36) % RDW 14.5 (11.6-14.8) % Plt Count 267 (150-400) X10^3/uL Neut % (Auto) 48.6 L (50-75) % Lymph % (Auto) 36.0 (25-40) % [place] % (Auto) 9.2 (3-14) % Eos % (Auto) 4.7 H (2-4) % Baso % (Auto) 1.5 (0-2) % Neut # (Auto) 4800 (8061-5951) /uL Lymph # (Auto) 3500 (5052-4437) /uL [place] # (Auto) 900 (0-900) /uL Eos # (Auto) 500 H (0-450) /uL Baso # (Auto) 100 (0-100) /uL PT 12.3 (9.4-12.5) SECONDS INR 1.1 (0.9-1.3) APTT 32 (25.1-36.5) SECONDS Sodium 135 L (137-145) mmol/L Potassium 3.8 (3.4-5.1) mmol/L Chloride 101 (98-107) mmol/L Carbon Dioxide 23 (22-32) mmol/L BUN 30 H (7-17) mg/dL Creatinine 0.86 (0.52-1.04) mg/dL Estimated GFR > 60 (>60) mL/min BUN/Creatinine Ratio 34.9 H (6-22) Glucose 151 H (70-99) mg/dL Calcium 9.7 (8.4-10.2) mg/dL Magnesium 2.1 (1.6-2.3) mg/dL Total Bilirubin 0.9 (0.2-1.3) mg/dL AST 51 H (14-36) IU/L ALT 25 (<35) IU/L Alkaline Phosphatase 73 (38-126) U/L Total Creatine Kinase 197 H (30-135) U/L Troponin I < 0.012 < 0.012 (0.01-0.034) ng/mL NT-Pro-B Natriuret Pep 142 (<450) pg/mL Total Protein 8.5 H (6.3-8.2) g/dL Albumin 4.7 (3.5-5.0) g/dL Globulin 3.8 (1.7-4.1) g/dL Albumin/Globulin Ratio 1.2 (1.0-2.8) Lipase 138 (23-300) U/L ECG Data Interpretation: EKG showed a sinus rhythm with premature supraventricular complexes. Normal axis, [place] intervals normal and no STT wave changes. Previous EKG showed a sinus room with premature atrial complexes. MDM Narrative Medical decision making narrative: 89-year-old female who is now stable after 1 nitroglycerin tablet 0.4 mg sublingual. Patient's blood pressure did dip a bit but quickly braulio again. Her chest pain symptoms are now minimal. She does have some chronic chest pain at baseline and was supposed to follow up with a composition stone applicator at [facility] but was asking to switch to a local composition stone applicator. Discharge Plan Departure Patient Disposition: Home Clinical Impression: Atypical chest pain Instructions: DI for Atypical Chest Pain Activity Restrictions/Additional Instructions: Continue with meds as scheduled. Follow up with new composition stone applicator this week. Call office to make an appointment. Prescriptions: No Action Eliquis 5 mg tablet 5 mg PO ONCE Qty: 90 3RF (DME) Disabled Parking Permit See Rx Instructions .ROUTE .MEDSUPPLY Qty: 1 0RF Rx Instructions: I find this patient to be medically disabled and qualified for Disabled Parking as indicated on the accompanying Disabled Parking Application for Individuals. (DME) Dexcom G7 Hospice Coordinator Misc See Rx Instructions .Route Qty: 1 5RF Rx Instructions: As directed to check blood glucose (DME) Dexcom G7 Sensor Device See Rx Instructions .Route Qty: 3 3RF Rx Instructions: As directed insulin degludec [Tresiba FlexTouch U-200] 200 unit/mL (3 mL) insulin pen 15 unit SUBCUT DAILY Qty: 9 3RF Rx Instructions: Take in AM bumetanide 2 mg tablet 2 mg PO DAILY Qty: 90 0RF Rx Instructions: Every other day Jardiance 10 mg tablet 10 mg PO DAILY Qty: 90 3RF metoprolol succinate 25 mg tablet extended release 24 hr 25 mg PO BID Qty: 90 3RF potassium chloride [Klor-Con M20] 20 mEq tablet,ER particles/crystals 40 meq PO DAILY Qty: 180 1RF albuterol sulfate 90 mcg/actuation HFA aerosol inhaler 1 inh inhalation Q4-6H PRN (Reason: shortness of breath or wheezing) Qty: 8.5 0RF Referrals: Clarence Gambino MD [Physician, Cardiology] Poonam Ferrell FNP-BC [Primary Care Provider, Family Practice] Stand Alone Forms: Patient Portal/API
[2025-04-19 13:26] VITALS: BP 162/83; PULSE 81
[2025-04-19] MEDS: NITROGLYCERIN 0.4 MG SL TAB SL (13:26)
[2025-04-19 13:32] VITALS: BP 91/55; PULSE 97; RESP 18; O2SAT 98
--- NOTE | 2025-04-19 14:10 | EKG_ITS ---
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
[2025-04-19 14:44] LABS: Troponin I < 0.012 ng/mL (0.01-0.034)
[2025-04-19 15:14] VITALS: BP 141/94
[2025-04-19 15:39] VITALS: BP 142/70; PULSE 83; RESP 16; O2SAT 98
== END 2025-04-19 16:24 | disposition home or self-care (01) ==
PROVIDERS: Emergency Provider Family Medicine; PCP Nurse Practitioner Family
DX: R07.89 Other chest pain (principal); I48.91 Unspecified atrial fibrillation; Z79.01 Long term (current) use of anticoagulants
CPT/HCPCS: 36415; 71045; 80053; 82550; 83690; 83735; 83880; 84484; 85025; 85610; 85730; 93005; 99284

== ENCOUNTER → 2025-04-29 13:50 | Outpatient (CLI) | payer MEDICARE, MEDICAID, SELFPAY ==
[2025-04-29 14:35] LABS: Appearance Urine UA CLEAR; Bilirubin Urine UA NEGATIVE (NEGATIVE); Color Urine UA YELLOW; Glucose Urine UA 3+ g/dL (Negative); Ketones Urine UA NEGATIVE (NEGATIVE); Leukocyte Esterase Urine UA TRACE (NEGATIVE); Nitrite Urine UA NEGATIVE (Negative); Occult Blood Urine UA NEGATIVE (Negative); Protein Urine UA NEGATIVE (Negative); Specific Gravity Urine UA <=1.005 (1.000-1.035); Urobilinogen Urine UA 0.2 E.U./dL (0.2)
[2025-04-29 14:42] LABS: pH Urine UA 6.0 (4.5-8.0)
[2025-04-29 14:48] LABS: Culture Indicated Urine Specimen Cultured
[2025-04-29 15:14] LABS: Hemoglobin A1C% w Est Avg Glu 7.6 % (4.0-6.0)
[2025-04-29 15:54] LABS: Vitamin D 25 Hydroxy (D3) 72.6 ng/mL (30.0-100.0)
[2025-04-29 16:28] LABS: Vitamin B12 > 1000 pg/mL (239-931)
== END ==
PROVIDERS: PCP Nurse Practitioner Family; Referring Provider Nurse Practitioner Family; Visit Provider Nurse Practitioner Family
DX: E11.9 Type 2 diabetes mellitus without complications (principal); Z79.4 Long term (current) use of insulin; R41.89 Other symptoms and signs involving cognitive functions and awareness; I10 Essential (primary) hypertension; I50.9 Heart failure, unspecified
CPT/HCPCS: 36415; 81001; 82306; 82607; 83036; 87086

== ENCOUNTER → 2025-08-31 12:00 | Outpatient (CLI) | payer MEDICARE, MEDICAID, SELFPAY ==
[2025-08-31 12:45] LABS: Hemoglobin A1C% w Est Avg Glu 7.4 % (4.0-6.0)
== END ==
PROVIDERS: PCP Nurse Practitioner Family; Referring Provider Nurse Practitioner Family; Visit Provider Nurse Practitioner Family
DX: E11.9 Type 2 diabetes mellitus without complications (principal); Z79.4 Long term (current) use of insulin
CPT/HCPCS: 36415; 83036